=== PATIENT | male | born 1935 | race Caucasian/White ===

== ENCOUNTER → 2021-05-20 | Outpatient (CLI) | payer MEDICARE ==
[~2021-05-20] MED LIST: ECOTRIN81 MG PO; LISINOPRIL-HCT1 EAC2 PO; NORVASC 5 MG TAB5 MG PO; OMEPRAZOLE20 MG PO; ZOCOR10 MG PO
== END ==
LOC: HEART 5 13:55
DX: R94.31 Abnormal electrocardiogram [ECG] [EKG] (principal)
CPT/HCPCS: 93306